=== PATIENT | male | born 1975 | race Caucasian/White ===

== ENCOUNTER → 2024-05-23 06:33 | Day surgery (SDC) | payer BC, SELFPAY ==
[2024-05-23 12:48] LABS: Glucose - Point of Care 155 mg/dl (70-99)
== END ==
LOC: GI 06:33
PROVIDERS: ATTENDING PHYSICIAN Internal Medicine Gastroenterology
DX: Z12.11 Encounter for screening for malignant neoplasm of colon (principal); K64.8 Other hemorrhoids; K63.5 Polyp of colon
CPT/HCPCS: 45380; 88305; 82962